=== PATIENT | female | born 1960 | race American Indian/Alaskan Native ===

== ENCOUNTER 2016-10-12 04:25 | Emergency (ER) | payer BC ==
[2016-10-12 05:22] LABS: Red Blood Count 4.35 M/mm3 (3.65-5.03); White Blood Count 5.5 K/mm3 (4.5-11.0)
[2016-10-12 05:23] LABS: Basophils % (Auto) 1.1 % (0.0-1.8); Eosinophils % (Auto) 4.3 % (0.0-4.3); Hematocrit 39.9 % (30.3-42.9); Hemoglobin 13.5 gm/dl (10.1-14.3); Mean Corpuscular HGB Conc 34 % (30-34); Mean Corpuscular Hemoglobin 31 pg (28-32); Mean Corpuscular Volume 92 fl (79-97); Platelet Count 238 K/mm3 (140-440); Red Cell Distribution Width 14.2 % (13.2-15.2)
[2016-10-12 05:31] LABS: Anion Gap 18 mmol/L; BUN/Creatinine Ratio 18.33; Blood Urea Nitrogen 11 mg/dL (7-17); Calcium 9.1 mg/dL (8.4-10.2); Carbon Dioxide 26 mmol/L (22-30); Chloride 100.5 mmol/L (98-107); Glucose 94 mg/dL (65-100); Potassium 3.5 mmol/L (3.6-5.0); Sodium 141 mmol/L (137-145)
[2016-10-12] MEDS ORDERED: ZOFRAN IV ONE (14:54)
[2016-10-12] MEDS ORDERED: MORPHINE IV ONE (14:55)
[2016-10-12] MEDS ORDERED: NACL 0.9% 1000 ML 1,000 ML IV ONE (14:55)
--- NOTE | 2016-10-12 15:25 | Emergency Department Report ---
ED Chest Pain HPI - General Chief Complaint: Chest Pain Stated Complaint: CHEST PAIN Time Seen by Provider: 10/12/16 14:40 Source: patient Mode of arrival: Ambulatory Limitations: No Limitations - History of Present Illness Initial Comments: 56-year-old female with a past medical history of hypertension, diabetes, GERD, asthma, and hyperlipidemia presents to the hospital complaining of lower sternal chest wall pain and swelling 1 week. Pain is constant, aching, worse with palpation, movement, or deep respiration. Mild shortness of breath associated. Patient complains of nausea and vomiting with by mouth intake for the past 2 days and difficulty tolerating liquids or food. Patient was seen 1 week ago in urgent care for the same pain is suggested that she had a hernia and referred her to GI. The next day she saw her family care doctor who agreed with GI follow-up. Yesterday patient discharged to the GI doctor who did not think the patient had a hernia and ordered outpatient CT abdomen and pelvis with and without contrast to be performed tomorrow. Patient also states she was scheduled for some sort ultrasound to be performed today. Previous surgical history of cholecystectomy. Patient has taken H2 blockers, PPI, nausea medication without improvement. She states she just wants pain relief and rates pain 10/[address] denson GI: dr luke Severity scale (0 -10): 10 - Related Data Home Medications Medication Instructions Recorded Confirmed Last Taken Furosemide 40 mg PO DAILY 09/22/13 10/12/16 03/17/14 Metformin HCl [metFORMIN ER] 1,000 mg PO BID 09/22/13 10/12/16 03/17/14 Cotulla-3 Fatty Acids/Fish Oil [Fish 1 tab PO DAILY 09/22/13 10/12/16 03/17/14 Oil] Potassium Chloride [K-Dur] 20 meq PO BID 09/22/13 10/12/16 03/17/14 Vit B12/Pyridoxine/Thiamine [Pv 6,000 units SL DAILY 09/22/13 10/12/16 03/17/14 Neuro Jonh Tablet] ALBUTEROL Inhaler [ProAir HFA 2 puff INHALATION QID 10/12/16 10/12/16 Unknown Inhaler] Albuterol Sulfate [Albuterol 0.63% 1 unit INHALATION 4XD PRN 10/12/16 10/12/16 Unknown NEBS] Aspirin 81 mg PO DAILY 10/12/16 10/12/16 Unknown AtorvaSTATin [Lipitor] 10 mg PO DAILY 10/12/16 10/12/16 Unknown Cyclobenzaprine [Flexeril 10 MG 10 mg PO QHS 10/12/16 10/12/16 Unknown TAB] Ergocalciferol (Vitamin D2) 2,000 units PO DAILY 10/12/16 10/12/16 Unknown [Vitamin D] Flaxseed Oil 2 tbsp PO DAILY 10/12/16 10/12/16 Unknown Liraglutide [Victoza 2-Nemesio] 1.8 mg SUB-Q DAILY 10/12/16 10/12/16 Unknown NIFEdipine XL [Procardia Xl] 60 mg PO DAILY 10/12/16 10/12/16 Unknown Omeprazole 40 mg PO AC 10/12/16 10/12/16 Unknown Ranitidine HCl [Acid Control] 150 mg PO DAILY 10/12/16 10/12/16 Unknown cloNIDine [Catapres] 0.2 mg PO TID 10/12/16 10/12/16 Unknown Previous Rx's Medication Instructions Recorded Last Taken Type Promethazine [Phenergan TAB] 25 mg PO Q6HR PRN #20 tab 10/12/16 Unknown Rx oxyCODONE /ACETAMINOPHEN [Percocet 1 tab PO Q4HR PRN #20 tab 10/12/16 Unknown Rx 5/325] Allergies Allergy/AdvReac Type Severity Reaction Status Date / Time lisinopril Allergy Angioedema Verified 03/18/14 09:56 HARDY score - Hardy Score Age > 65: (0) No Aspirin use within the Past 7 Days: (0) No 3 or more CAD Risk Factors: (1) Yes 2 or more Angina events in past 24 hrs: (0) No Known CAD with more than 50% Stenosis: (0) No Elevated Cardiac Markers: (0) No ST Deviation Greater than 0.5mm: (0) No HARDY Score: 1 ED Review of Systems ROS: Stated complaint: CHEST PAIN Other details as noted in HPI Comment: All other systems reviewed and negative Other: Constitutional: No fevers chills Eyes: No eye pain visual changes ENT: No ear pain or throat pain Neck: Denies pain Respiratory: Denies cough wheezing Cardiovascular: Denies chest pain, palpitations, syncope GI: As per HPI : Denies dysuria Musculoskeletal: Denies back pain Skin: Denies rash, lesions, erythema Neurologic: Denies headache, numbness, weakness Psychiatric: Denies suicidal ideation, hallucinations ED Past Medical Hx - Past Medical History Hx Hypertension: Yes (1990) Hx Congestive Heart Failure: No Hx Diabetes: Yes (IDDM) Hx GERD: Yes Hx Arthritis: Yes Hx Asthma: Yes Hx COPD: No - Surgical History Hx Breast Surgery: Yes (LEFT CYSTECTOMY) - Social History Smoking Status: Never Smoker Substance Use Type: None - Medications Home Medications: Home Medications Medication Instructions Recorded Confirmed Last Taken Type Furosemide 40 mg PO DAILY 09/22/13 10/12/16 03/17/14 History Metformin HCl [metFORMIN ER] 1,000 mg PO BID 09/22/13 10/12/16 03/17/14 History Cotulla-3 Fatty Acids/Fish Oil [Fish 1 tab PO DAILY 09/22/13 10/12/16 03/17/14 History Oil] Potassium Chloride [K-Dur] 20 meq PO BID 09/22/13 10/12/16 03/17/14 History Vit B12/Pyridoxine/Thiamine [Pv 6,000 units SL DAILY 09/22/13 10/12/16 03/17/14 History Neuro Jonh Tablet] ALBUTEROL Inhaler [ProAir HFA 2 puff INHALATION QID 10/12/16 10/12/16 Unknown History Inhaler] Albuterol Sulfate [Albuterol 0.63% 1 unit INHALATION 4XD PRN 10/12/16 10/12/16 Unknown History NEBS] Aspirin 81 mg PO DAILY 10/12/16 10/12/16 Unknown History AtorvaSTATin [Lipitor] 10 mg PO DAILY 10/12/16 10/12/16 Unknown History Cyclobenzaprine [Flexeril 10 MG 10 mg PO QHS 10/12/16 10/12/16 Unknown History TAB] Ergocalciferol (Vitamin D2) 2,000 units PO DAILY 10/12/16 10/12/16 Unknown History [Vitamin D] Flaxseed Oil 2 tbsp PO DAILY 10/12/16 10/12/16 Unknown History Liraglutide [Victoza 2-Nemesio] 1.8 mg SUB-Q DAILY 10/12/16 10/12/16 Unknown History NIFEdipine XL [Procardia Xl] 60 mg PO DAILY 10/12/16 10/12/16 Unknown History Omeprazole 40 mg PO AC 10/12/16 10/12/16 Unknown History Promethazine [Phenergan TAB] 25 mg PO Q6HR PRN #20 tab 10/12/16 Unknown Rx Ranitidine HCl [Acid Control] 150 mg PO DAILY 10/12/16 10/12/16 Unknown History cloNIDine [Catapres] 0.2 mg PO TID 10/12/16 10/12/16 Unknown History oxyCODONE /ACETAMINOPHEN [Percocet 1 tab PO Q4HR PRN #20 tab 10/12/16 Unknown Rx 5/325] ED Physical Exam - General Limitations: No Limitations - Other Other exam information: General: No limitations, patient is alert in no acute distress Head exam: Atraumatic, normocephalic Eyes exam: Normal appearance, pupils equal reactive to light, extraocular movements intact ENT: Moist mucous membrane, normal oropharynx Neck exam: Normal inspection, full range of motion, no meningismus nontender Respiratory exam: Clear to auscultation bilateral, no wheezes, rales, crackles. Prominent xiphoid process with significant tenderness to palpation to Cipro process and distal sternum Cardiovascular: Normal rate and rhythm, normal heart sounds Abdomen: Soft, nondistended, and nontender, with normal bowel sounds, no rebound, or guarding Extremity: Full range of motion normal inspection no deformity, no tenderness or edema Back: Normal Inspection, full range of motion, no tenderness Neurologic: Alert, oriented x3, cranial nerves intact, no motor or sensory deficit Psychiatric: normal affect, normal mood Skin: Warm, dry, intact ED Course Vital Signs 10/12/16 10/12/16 10/12/16 04:39 09:35 14:43 Temperature 98.3 F 98.2 F Pulse Rate 82 70 Respiratory 24 20 14 Rate Blood Pressure 163/99 155/95 O2 Sat by Pulse 100 100 98 Oximetry 10/12/16 10/12/16 10/12/16 14:57 15:00 15:04 Temperature Pulse Rate 75 Respiratory 20 Rate Blood Pressure 183/101 O2 Sat by Pulse 100 97 97 Oximetry 10/12/16 10/12/16 10/12/16 15:46 16:00 16:14 Temperature Pulse Rate 67 68 71 Respiratory 18 17 18 Rate Blood Pressure 194/114 194/114 180/95 O2 Sat by Pulse 95 94 94 Oximetry 10/12/16 10/12/16 10/12/16 16:30 17:44 18:00 Temperature Pulse Rate Respiratory Rate Blood Pressure 169/92 169/92 169/92 O2 Sat by Pulse 93 97 Oximetry 10/12/16 10/12/16 18:08 19:00 Temperature Pulse Rate Respiratory Rate Blood Pressure 169/92 169/92 O2 Sat by Pulse 95 88 Oximetry - Reevaluation(s) Reevaluation #1: 10/12/16 18:07 Patient continues complaining of pain after receiving Zofran, morphine, and normal saline. Dilaudid 1 mg ordered Reevaluation #2: 10/12/16 19:15 Pain improved after dilaudid 10/12/16 19:15 ED Medical Decision Making - Lab Data Result diagrams: 10/12/16 04:57 10/12/16 04:57 Lab Results 10/12/16 10/12/16 10/12/16 Range/Units 04:57 04:57 07:35 WBC 5.5 (4.5-11.0) K/mm3 RBC 4.35 (3.65-5.03) M/mm3 Hgb 13.5 (10.1-14.3) gm/dl Hct 39.9 (30.3-42.9) % MCV 92 (79-97) fl MCH 31 (28-32) pg MCHC 34 (30-34) % RDW 14.2 (13.2-15.2) % Plt Count 238 (140-440) K/mm3 Lymph % (Auto) 43.1 H (13.4-35.0) % [place] % (Auto) 5.8 (0.0-7.3) % Eos % (Auto) 4.3 (0.0-4.3) % Baso % (Auto) 1.1 (0.0-1.8) % Lymph # 2.4 (1.2-5.4) K/mm3 [place] # 0.3 (0.0-0.8) K/mm3 Eos # 0.2 (0.0-0.4) K/mm3 Baso # 0.1 (0.0-0.1) K/mm3 Seg Neutrophils % 45.7 (40.0-70.0) % Seg Neutrophils # 2.5 (1.8-7.7) K/mm3 Carbon Dioxide 26 (22-30) mmol/L BUN 11 (7-17) mg/dL Creatinine 0.6 L (0.7-1.2) mg/dL Estimated GFR > 60 ml/min BUN/Creatinine Ratio 18.33 % Glucose 94 (65-100) mg/dL Calcium 9.1 (8.4-10.2) mg/dL Troponin T < 0.010 < 0.010 (0.00-0.029) ng/mL 10/12/16 Range/Units 10:53 WBC (4.5-11.0) K/mm3 RBC (3.65-5.03) M/mm3 Hgb (10.1-14.3) gm/dl Hct (30.3-42.9) % MCV (79-97) fl MCH (28-32) pg MCHC (30-34) % RDW (13.2-15.2) % Plt Count (140-440) K/mm3 Lymph % (Auto) (13.4-35.0) % [place] % (Auto) (0.0-7.3) % Eos % (Auto) (0.0-4.3) % Baso % (Auto) (0.0-1.8) % Lymph # (1.2-5.4) K/mm3 [place] # (0.0-0.8) K/mm3 Eos # (0.0-0.4) K/mm3 Baso # (0.0-0.1) K/mm3 Seg Neutrophils % (40.0-70.0) % Seg Neutrophils # (1.8-7.7) K/mm3 Carbon Dioxide (22-30) mmol/L BUN (7-17) mg/dL Creatinine (0.7-1.2) mg/dL Estimated GFR ml/min BUN/Creatinine Ratio % Glucose (65-100) mg/dL Calcium (8.4-10.2) mg/dL Troponin T < 0.010 (0.00-0.029) ng/mL Sodium 141, potassium 3.5, chloride 100.5, anion gap 18 - EKG Data -: EKG Interpreted by Me (sinus rhythm 84. Left atrial enlargement, LVH) - EKG Data When compared to previous EKG there are: no significant change (compared to ) - Radiology Data Radiology results: report reviewed CT chest IV: No acute findings. Evidence from old granulomatous disease. Prominent xiphoid process noted CT abdomen and pelvis IV contrast: Intra-and extra hepatic duct dilatation this could be acute or chronic status post cholecystectomy. Degenerative disc disease at L5-S1 - Medical Decision Making Patient has normal lab work, EKG, and ongoing GI symptoms are reproducible sternal/xiphoid process pain. She will be provided narcotic pain medication since she continues to have pain despite outpatient management. Patient was provided a copy of her CT reports and encouraged to follow up as outpatient with her physicians as scheduled for further workup and evaluation - Differential Diagnosis costochondritis, chest wall mass, gastritis, hernia Critical Care Time: No Critical care attestation.: If time is entered above; I have spent that time in minutes in the direct care of this critically ill patient, excluding procedure time. ED Disposition Clinical Impression: Costochondritis, acute GERD (gastroesophageal reflux disease) Qualifiers: Esophagitis presence: esophagitis presence not specified Qualified Code(s): K21.9 - Gastro-esophageal reflux disease without esophagitis Vomiting Qualifiers: Vomiting type: unspecified Vomiting Intractability: non-intractable Nausea presence: with nausea Qualified Code(s): R11.2 - Nausea with vomiting, unspecified Disposition: DISCHARGED TO HOME OR SELFCARE Is pt being admited?: No Condition: Stable Instructions: Costochondritis (ED), Acute Nausea and Vomiting (ED), Gastroesophageal Reflux Disease (ED) Additional Instructions: Taking medication as prescribed. Take the copy of your CAT scan report from the chest, abdomen and pelvis to your physicians for further workup and evaluation. Return if symptoms worsen. Prescriptions: Promethazine [Phenergan TAB] 25 mg PO Q6HR PRN #20 tab PRN Reason: Nausea oxyCODONE /ACETAMINOPHEN [Percocet 5/325] 1 tab PO Q4HR PRN #20 tab PRN Reason: Pain Referrals: PAVAN HAMILTON [Other] - 3-5 Days Time of Disposition: 19:16
--- NOTE | 2016-10-12 17:37 | Cat Scan Report ---
FINAL REPORT EXAM: CT ABDOMEN PELVIS W CON HISTORY: lower sternal pain/swelling, epigastric pain n,v TECHNIQUE: CT abdomen and pelvis with intravenous contrast PRIORS: None. FINDINGS: No acute abnormalities identified in the visualized portion lung bases. Small calcified granuloma is noted in the right lower lobe. There is moderate intra and extrahepatic biliary dilatation. Patient is status post cholecystectomy. Multiple calcifications are noted in the spleen. No evidence for splenic enlargement. No peripancreatic inflammatory changes are seen. Kidneys demonstrate no evidence for hydronephrosis or nephrolithiasis. The adrenal glands are. No evidence for colonic or small bowel distention. The appendix is definitively identified. Urinary bladder is unremarkable. The abdominal aorta is normal in caliber. No free fluid or free air identified Noted are degenerative disc changes at L5-S1 with vacuum disc present IMPRESSION: Intra and extrahepatic biliary dilatation. This could be an acute or chronic finding. Patient is status post cholecystectomy. Continued clinical concern MRCP could be obtained for further evaluation Degenerative disc changes noted at L5-S1 otherwise no acute findings.
--- NOTE | 2016-10-12 17:48 | Cat Scan Report ---
FINAL REPORT EXAM: CT CHEST W CON HISTORY: lower sternal pain and swelling TECHNIQUE: CT chest intravenous contrast PRIORS: None. FINDINGS: No evidence of mediastinal pathologic lymph node enlargement. Calcified mediastinal lymph nodes are noted along with right hilar lymphatic calcifications. There is a small calcified granuloma within the inferior aspect of the right lower lobe. Heart and great vessels are unremarkable. The aorta is normal in caliber. No focal pulmonary infiltrate identified. No pleural fluid collection seen. No acute pulmonary abnormality noted. No acute skeletal findings are identified. Noted is a prominent xiphoid process. No adjacent inflammatory changes are identified IMPRESSION: No acute findings in the chest Evidence for remote granulomatous disease Prominent xiphoid process noted.
[2016-10-12] MEDS ORDERED: DILAUDID IV ONE (18:00)
[2016-10-12 19:51] VITALS: BP 128/82
== END 2016-10-12 19:40 | disposition home or self-care (01) ==
LOC: ED 04:25
DX: K21.9 Gastro-esophageal reflux disease without esophagitis (principal); M94.0 Chondrocostal junction syndrome [Tietze]; I10 Essential (primary) hypertension; E11.9 Type 2 diabetes mellitus without complications; M19.90 Unspecified osteoarthritis, unspecified site; J45.909 Unspecified asthma, uncomplicated; Z90.89 Acquired absence of other organs; Z79.82 Long term (current) use of aspirin; Z88.8 Allergy status to other drugs, medicaments and biological substances
CPT/HCPCS: 36415; 71260; 74177; 80048; 84484; 85025; 93005; 93010; 96374; 96375; 99285; J1170; J2270; J2405; J7030; Q9967

== ENCOUNTER 2018-03-27 11:20 | Outpatient (CLI) | payer OTHER ==
--- NOTE | 2018-04-02 10:02 | Vascular Lab Report ---
Right Lower Extremity Venous Duplex Study: Reason for Exam: Pain and swelling of the right lower extremity. Comments on the Right: All veins visualized are freely compressible without evidence of internal echogenicity. Flow is spontaneous and phasic throughout. No evidence of acute or chronic thrombus is seen in any of the vessels visualized. A soft tissue change in the right knee area is consistent with a Lopez's cyst. Comments on the Left: A limited duplex study was done of the proximal veins of the left lower extremity. All veins visualized are freely compressible without evidence of internal echogenicity. Flow is spontaneous and phasic throughout. No evidence of acute or chronic thrombus is seen in any of the vessels visualized. Impression: No evidence of acute or chronic deep venous thrombosis in the right lower extremity. A soft tissue change in the right knee area is consistent with a Lopez's cyst.
== END 2018-03-27 11:21 | disposition home or self-care (01) ==
LOC: VAS 11:20
PROVIDERS: ATTEND Podiatrist Foot & Ankle Surgery
DX: M79.661 Pain in right lower leg (principal); M79.89 Other specified soft tissue disorders; E11.9 Type 2 diabetes mellitus without complications; E66.9 Obesity, unspecified; I10 Essential (primary) hypertension; K21.9 Gastro-esophageal reflux disease without esophagitis; M19.90 Unspecified osteoarthritis, unspecified site; J45.909 Unspecified asthma, uncomplicated; Z83.3 Family history of diabetes mellitus; Z82.49 Family history of ischemic heart disease and other diseases of the circulatory system